=== PATIENT | female | born 1955 | race Caucasian/White ===

== ENCOUNTER → 2018-01-23 | Outpatient (CLI) | payer BC | END | disposition home or self-care (01) | LOC: LAB 16:00 → LAB SHORT 16:00 | PROVIDERS: Family Medicine | DX: Z01.419 Encounter for gynecological examination (general) (routine) without abnormal findings (principal) | CPT/HCPCS: G0145 ==

== ENCOUNTER 2019-06-12 21:46 | Emergency (ER) | payer BC ==
[~2019-06-12] VITALS: Ht 175.3 cm; Wt 74.8 kg
[2019-06-12] MEDS ORDERED: BUPR100ER PO (23:39)
[2019-06-12] MEDS ORDERED: LISI20 PO (23:39)
[2019-06-12] MEDS ORDERED: FOLI1 PO (23:40)
[2019-06-12] MEDS ORDERED: LEFL20 PO (23:40)
[2019-06-12] MEDS ORDERED: THERA1 EACH PO (23:41)
[2019-06-12] MEDS ORDERED: VITAMIN D31000 UNI2 PO (23:41)
[2019-06-12] MEDS ORDERED: Mapap500 M1 PO (23:42)
[2019-06-12] MEDS ORDERED: ESTR2 PO (23:43)
[2019-06-12] MEDS ORDERED: Enbrel25 MG (23:43)
[2019-06-12] MEDS ORDERED: CELE200 PO (23:43)
[2019-06-12] MEDS ORDERED: Hydrochloroth12.5 MG PO (23:44)
== END 2019-06-13 01:31 | disposition home or self-care (01) ==
LOC: ER 21:46
DX: I10 Essential (primary) hypertension (principal); Z79.899 Other long term (current) drug therapy
CPT/HCPCS: 36415; 99282

== ENCOUNTER 2019-07-17 07:48 | Day surgery (SDC) | payer BC ==
[~2019-07-17] VITALS: Ht 175.3 cm; Wt 78.9 kg
[~2019-07-17 07:48] MED LIST: BUPR100ER PO; BUPROPION HCL200 MG PO; CELE200 PO; Daily Multiple1 EACH PO; ENBREL50 MG/1 M1 SC; ESTR2 PO; Enbrel25 MG; FAMO20 PO; FOLI1 PO; HYDCHL25 PO; Hydrochloroth12.5 MG PO; LEFL20 PO; LISI20 PO; Mapap500 M1 PO; THERA1 EACH PO; VITAMIN D31000 UNI2 PO
--- NOTE | 2019-07-17 08:29 | NUR ---
07/17/19 0829 [place] 1 IV MISS IN RFA BY CHRISTINA FRIAS 1 GOOD IV IN RAC BY CHRISTINA JENNINGS TOW
--- NOTE | 2019-07-17 09:20 | NUR ---
07/17/19 0920 Tasia Call (Johanny DILITATION SAVORY 18 HUERTA 60 BALLOON 20
== END 2019-07-17 09:53 | disposition home or self-care (01) ==
LOC: ORSCSDS 07:48
PROVIDERS: Internal Medicine Gastroenterology
PROC: 0D758ZZ Dilation of Esophagus, Via Natural or Artificial Opening Endoscopic (ICD-10-PCS; principal; 2019-07-17 09:00)
PROC: 0DB38ZX Excision of Lower Esophagus, Via Natural or Artificial Opening Endoscopic, Diagnostic (ICD-10-PCS; principal; 2019-07-17 09:00)
PROC: 0DB18ZX Excision of Upper Esophagus, Via Natural or Artificial Opening Endoscopic, Diagnostic (ICD-10-PCS; principal; 2019-07-17 09:00)
DX: R13.10 Dysphagia, unspecified (principal); K22.2 Esophageal obstruction; K44.9 Diaphragmatic hernia without obstruction or gangrene; I10 Essential (primary) hypertension; K21.9 Gastro-esophageal reflux disease without esophagitis; Z79.899 Other long term (current) drug therapy
CPT/HCPCS: 88305; C1726; J2704; J7120

== ENCOUNTER → 2024-06-28 | Outpatient (CLI) | payer MEDICARE, BC ==
[2024-06-28 14:29] LABS: Bacterial Vaginosis PCR Negative (NEGATIVE); Candida Group, PCR NOT DETECTED (NOT DETECT); Candida glabrata-krusei, PCR NOT DETECTED (NOT DETECT)
== END ==
LOC: LAB SHORT 10:40 → LAB 10:40
PROVIDERS: Family Medicine
DX: N89.8 Other specified noninflammatory disorders of vagina (principal)
CPT/HCPCS: 87481; 87661; 87801

== ENCOUNTER 2024-10-20 01:20 | Day surgery (SDC) | payer MEDICARE, BC ==
[2024-10-20] MEDS ORDERED: ZOLEDRONIC ACID/MANNITOL-WATER 100 ML IV SCH ×2 (06:00→10:30)
[2024-10-20 10:10] VITALS: BP 125/73
[2024-10-20 11:12] VITALS: BP 125/77
[2024-10-20] MEDS ORDERED: Bupropion HCl75 MG PO (15:06)
[2024-10-20] MEDS ORDERED: PANT40 PO (15:07)
[2024-10-20] MEDS ORDERED: SERT25 PO (15:08)
[2024-10-20] MEDS ORDERED: ELIQUIS5 M2 PO (15:08)
[2024-10-20] MEDS ORDERED: AMLO5 PO (15:09)
[2024-10-20] MEDS ORDERED: CARTIA XT120 M9 PO (15:09)
[2024-10-20] MEDS ORDERED: OXYC5 PO (15:09)
[2024-10-20] MEDS ORDERED: ARTIFICIAL TEAR15 M2 BOTHEYES (15:10)
== END 2024-10-20 11:14 | disposition home or self-care (01) ==
LOC: ATC 01:20
DX: M81.0 Age-related osteoporosis without current pathological fracture (principal); M05.79 Rheumatoid arthritis with rheumatoid factor of multiple sites without organ or systems involvement
CPT/HCPCS: 96374; J3489

== ENCOUNTER → 2025-04-27 | Outpatient (CLI) | payer MEDICARE, BC ==
[~2025-04-27] MED LIST changes: +AMLO5 PO; +ARTIFICIAL TEAR15 M2 BOTHEYES; +Bupropion HCl75 MG PO; +CARTIA XT120 M9 PO; +ELIQUIS5 M2 PO; +OXYC5 PO; +PANT40 PO; +SERT25 PO
== END | disposition home or self-care (01) ==
LOC: LAB SHORT 14:09 → LAB 14:09
PROVIDERS: Advanced Practice Midwife
DX: Z01.419 Encounter for gynecological examination (general) (routine) without abnormal findings (principal)
CPT/HCPCS: 87624; G0145